=== PATIENT | male | born 1970 | race Caucasian/White ===

== ENCOUNTER → 2024-05-07 08:52 | Outpatient (REF) | payer BC, SELFPAY | LOC: HWEVLT 08:52 | PROVIDERS: ATTENDING PHYSICIAN Radiology Vascular & Interventional Radiology | DX: I83.893 Varicose veins of bilateral lower extremities with other complications (principal) | CPT/HCPCS: 93970 ==

== ENCOUNTER → 2024-07-07 08:00 | Outpatient (REF) | payer BC, SELFPAY | LOC: HWEVLT 08:00 | PROVIDERS: ATTENDING PHYSICIAN Radiology Vascular & Interventional Radiology | DX: I83.892 Varicose veins of left lower extremity with other complications (principal) | CPT/HCPCS: 36478; C1769 ==

== ENCOUNTER → 2024-07-28 11:26 | Outpatient (REF) | payer BC, SELFPAY | LOC: HWEVLT 11:26 | PROVIDERS: ATTENDING PHYSICIAN Radiology Diagnostic Radiology | DX: I83.892 Varicose veins of left lower extremity with other complications (principal) | CPT/HCPCS: 93971 ==

== ENCOUNTER → 2024-08-05 08:17 | Outpatient (REF) | payer BC, SELFPAY ==
[2024-08-05 10:07] LABS: ALT (SGPT) 79 U/L (0-50); AST (SGOT) 61 U/L (17-59); Albumin 5.1 g/dl (3.5-5.0); Alkaline Phosphatase 41 U/L (38-126); Blood Urea Nitrogen 13 mg/dl (9-20); Calcium 9.9 mg/dl (8.4-10.2); Carbon Dioxide 27 mmol/L (22-30); Chloride 100 mmol/L (98-107); Creatine Phosphokinase 50 U/L (55-170); HDL Cholesterol 61 mg/dl; LDL Cholesterol, Calculated 72 mg/dl; Potassium 4.9 mmol/L (3.5-5.1); Sodium 141 mmol/L (135-145); Total Bilirubin 0.9 mg/dl (0.2-1.3); Total Cholesterol 148 mg/dl (50-199); Total Protein 7.9 g/dl (6.3-8.2); Triglyceride 76 mg/dl (10-149); Very Low Density Lipoprotein 15 mg/dl (0-30); eGFR > 60.00
[2024-08-05 10:16] LABS: Glucose 116 mg/dl (70-99)
[2024-08-05 16:35] LABS: Glycohemoglobin (HgbA1c) 5.2 % (4.0-5.6)
== END ==
LOC: DHCBC/DCA 08:17
PROVIDERS: ATTENDING PHYSICIAN Internal Medicine
DX: R93.1 Abnormal findings on diagnostic imaging of heart and coronary circulation (principal); R73.01 Impaired fasting glucose; Z12.5 Encounter for screening for malignant neoplasm of prostate; R74.01 Elevation of levels of liver transaminase levels; I10 Essential (primary) hypertension; R53.83 Other fatigue
CPT/HCPCS: 36415; 78452; 80053; 80061; 82550; 83036; 93017; A9500; G0103